=== PATIENT | male | born 1945 | race Caucasian/White ===

== ENCOUNTER 2019-03-25 06:56 | Day surgery (SDC) | payer OTHER ==
[~2019-03-25] VITALS: Ht 182.9 cm; Wt 90.9 kg
[~2019-03-25 06:56] MED LIST: IBUP800 PO; PRAV20 PO; ZESTORETIC 20-121 EA PO; Zantac150 MG PO
--- NOTE | 2019-03-25 07:46 | NUR ---
History, Chart, Medications and Allergies reviewed before start of procedure. Patient States Post-Procedure ride home has been arranged.
--- NOTE | 2019-03-25 07:56 | NUR ---
HAVE TAKEN OVER CARE OF PATIENT AFTER RECEIVING REPORT FROM SHIRA KEARNEY.
--- NOTE | 2019-03-25 09:26 | NUR ---
03/25/19 0926 Mike Germain ANCEF 2 GM IV STARTED AT [address] HODGES
--- NOTE | 2019-03-25 11:04 | NUR ---
Discharge instructions reviewed with patient. Patient verbalizes understanding. Copy given to patient to take home. Prescription givne to with paperwork.
--- NOTE | 2019-03-25 11:31 | NUR ---
DR. HODGES AT BEDSIDE PER NURSE CONCERN ABOUT HYPOTENSION. REMAINING 300ML IVF IN BAG OPENED UP PER DR. HODGES. REPORT GIVEN TO SUSANA GARCIA RN. SRINI TO RESUME CARE OF PATIENT.
--- NOTE | 2019-03-25 11:58 | NUR ---
1130 ASSUMED CARE OF PT. PATIENT HAVING SOME NAUSEA, HOB LOWERED COOL CLOTH GIVEN ADVISED DR SANCHEZ OF NAUSEA. PT LIGHT HEADED AND BP LOW. DR SANCHEZ AWARE, IV FLUIDS INCREASE, LOWER EXTREMITIES ELEVATED. RITH INGUINAL DRESSING D&I. NO REDNESS OR SWELLING NOTED. ICE PACK PLACED TO DURGICAL AREA. WARM BLANKETS GIVEN FOR COMFORT. AT BED SIDE
--- NOTE | 2019-03-25 12:21 | NUR ---
RESUMED CARE OF PATIENT. PATIENT STATES HIS NAUSEA IS "PRETTY MUCH GONE NOW". RATES RIGHT GROIN PAIN 3/10 AND STATES IT IS TOLERABLE. NO OTHER C/O. WILL CONTINUE TO MONITOR VS. CALL LIGHT WITHIN REACH. AT BEDSIDE.
--- NOTE | 2019-03-25 12:43 | NUR ---
1230- UP TO SIDE OF BED TO VOID USING A HAND HELD URINAL. DENIES DIZZINESS. PATIENT ADMITS TO STANDING UP AFTER NURSE LEFT HIM WITH PRIVACY. DENIES ISSUES WITH STANDING. 1244- "IM FEELING MUCH MORE ALERT."
--- NOTE | 2019-03-25 13:01 | NUR ---
DR HODGES GIVEN UPDATE ON PATIENT. NEW ORDER TO DISCHARGE HOME IF SBP MAINTAINS IN 90'S FOR NEXT 20 MIN. PATIENT AGREES TO SEEK EMERGENCY ROOM ATTENTION IF HE BECOMES DIZZY PER DR HODGES ORDER. WILL CONTINUE TO MONITOR VS AND C/O. PATIENT STATES HE FEELS MORE AWAKE AND DENIES NEED FOR FURTHER PAIN MEDICATION. RATES RIGHT GROIN PAIN /. DENIES NAUSEA OR DIZZINESS. SKIN COLOR IMPROVING/PINKER THAN UPON ADMISSION TO STEP RECOVERY.
--- NOTE | 2019-03-25 13:18 | NUR ---
SPOKE TO DR DUFFY ON PHONE ABOUT VS. NO NEW ORDERS. WILL PLAN FOR DISCHARGE HOME IF SBP MAINTAINES ABOVE 90.
--- NOTE | 2019-03-25 13:27 | NUR ---
1324- UP TO DRESS WITH A STEADY GAIT. DENIES DIZZINESS.
--- NOTE | 2019-03-25 13:31 | NUR ---
PATIENT AGREES TO GO TO EMERGENCY ROOM IF HE IS UNABLE TO VOID AND HAS DISCOMFORT FROM URINE RETENTION. DENIES SENSATION THAT HE IS UNABLE TO VOID.
--- NOTE | 2019-03-25 13:43 | NUR ---
1331-Dressing to procedure site clean, dry, intact with no visible drainage, swelling, erythema or bruising noted.
== END 2019-03-25 13:33 | disposition home or self-care (01) ==
LOC: ORSCMMR 06:56 → ORD 08:30 → ORSCMMR 13:33
PROVIDERS: Surgery
PROC: 0YU50JZ Supplement Right Inguinal Region with Synthetic Substitute, Open Approach (ICD-10-PCS; principal; 2019-03-25 08:30)
DX: K40.90 Unilateral inguinal hernia, without obstruction or gangrene, not specified as recurrent (principal); I10 Essential (primary) hypertension; K21.9 Gastro-esophageal reflux disease without esophagitis; E78.5 Hyperlipidemia, unspecified; Z79.899 Other long term (current) drug therapy
CPT/HCPCS: C1781; J0690; J2250; J2704; J3010; J7120